=== PATIENT | female | born 1995 | race Caucasian/White ===

== ENCOUNTER 2017-09-20 08:59 | Inpatient (IN) | payer OTHER ==
[~2017-09-20] VITALS: Ht 157.5 cm; Wt 61.7 kg
[2017-09-20] MEDS ORDERED: PRENATAL TABLE1 EAC3 PO (09:43)
== END 2017-09-22 19:24 | DRG 775 ==
LOC: OB/GYN 08:59 → LDR 08:59 → OB/GYN 09-21 00:04
PROC: 10E0XZZ Delivery of Products of Conception, External Approach (ICD-10-PCS; principal; 2017-09-20)
PROC: 0UQMXZZ Repair Vulva, External Approach (ICD-10-PCS; 2017-09-20)
PROC: 0UQGXZZ Repair Vagina, External Approach (ICD-10-PCS; 2017-09-20)
PROC: 10907ZC Drainage of Amniotic Fluid, Therapeutic from Products of Conception, Via Natural or Artificial Opening (ICD-10-PCS; 2017-09-20)
PROC: 3E033VJ Introduction of Other Hormone into Peripheral Vein, Percutaneous Approach (ICD-10-PCS; 2017-09-20)
PROC: 4A033R1 Measurement of Arterial Saturation, Peripheral, Percutaneous Approach (ICD-10-PCS; 2017-09-20)
PROC: 4A1HXCZ Monitoring of Products of Conception, Cardiac Rate, External Approach (ICD-10-PCS; 2017-09-20)
DX: O71.82 Other specified trauma to perineum and vulva (principal); O71.4 Obstetric high vaginal laceration alone; O69.81X0 Labor and delivery complicated by cord around neck, without compression, not applicable or unspecified; Z3A.38 38 weeks gestation of pregnancy; Z37.0 Single live birth